=== PATIENT | female | born 1990 | race Asian ===

== ENCOUNTER 2018-01-23 22:14 | Inpatient (IN) | payer MEDICAID ==
[2018-01-23] MEDS ORDERED: Sodium Chloride 0.9% 2.5 ML Syringe FLUSH PRN (23:27)
[2018-01-23] MEDS ORDERED: Sodium Chloride 0.9% 10 ML Syringe FLUSH PRN (23:27)
[2018-01-23] MEDS ORDERED: Citric Acid/Sodium Citrate Solution 30 ML Cup PO SCH (23:30)
[2018-01-23] MEDS ORDERED: Lactated Ringers 1,000 ML IV SCH (23:30)
[2018-01-23] MEDS ORDERED: Oxytocin/0.9 % Sodium Chloride 30 UNIT/500 ML BAG IV SCH (23:30)
[2018-01-24] MEDS ORDERED: ZIDOVUDINE IV ONE (00:03)
[2018-01-24] MEDS ORDERED: SODIUM CHLORIDE 0.9% IV ONE (00:03)
[2018-01-24] MEDS ORDERED: SODIUM CHLORIDE 0.9% IV SCH ×2 (01:00→03:45)
[2018-01-24] MEDS ORDERED: ZIDOVUDINE IV SCH ×2 (01:00→03:45)
--- NOTE | 2018-01-24 03:37 | PCM.PREANE ---
Preanesthetic Assessment - Procedure Proposed Procedure: - Anesthesia/Transfusion/Family Hx Anesthesia History: Prior Anesthesia Without Reaction Family History of Anesthesia Reaction: No Transfusion History: No Prior Transfusion(s) Type of Transfusion Reactions: Reports: Unknown Intubation History: Unknown Additional History: HIV under treatment in [facility]; prior - Review of Systems General: No Symptoms Pulmonary: No Symptoms Cardiovascular: No Symptoms Gastrointestinal: No Symptoms, Other (some GERD w/ ) Neurological: Other (some labor pains) Other: Reports: None - Physical Assessment NPO Status Date: 01/23/18 NPO Status Time: 21:00 Height: 4 ft 9 in Weight: 127 lb ASA Class: 2E Mental Status: Alert & Oriented x3 Airway Class: Mallampati = 1 Dentition: Reports: Normal Dentition Thyro-Mental Finger Breadths: 3 Mouth Opening Finger Breadths: 3 ROM/Head Extension: Full Lungs: Clear to Auscultation, Normal Respiratory Effort Cardiovascular: Regular Rate, Regular Rhythm, No Murmurs - Lab Values: Laboratory Last Values WBC 11.10 K/uL (4.0-11.0) H 01/24/18 00:05 RBC 4.99 M/uL (4.30-5.90) 01/24/18 00:05 Hgb 10.5 g/dL (12.0-16.0) L 01/24/18 00:05 Hct 30.4 % (36.0-46.0) L 01/24/18 00:05 MCV 60.9 fL (80.0-98.0) L 01/24/18 00:05 MCH 21.0 pg (27.0-32.0) L 01/24/18 00:05 MCHC 34.5 g/dL (31.0-37.0) 01/24/18 00:05 RDW Std Deviation 33.7 fl (28.0-62.0) 01/24/18 00:05 RDW Coeff of Daren 16 % (11.0-15.0) H 01/24/18 00:05 Plt Count 269 K/uL (150-400) 01/24/18 00:05 MPV 10.30 fL (7.40-12.00) 01/24/18 00:05 Nucleated RBC % 0.4 /100WBC 01/24/18 00:05 Nucleated RBCs # 0 K/uL 01/24/18 00:05 Blood Type B POSITIVE 01/24/18 00:05 Antibody Screen NEGATIVE 01/24/18 00:05 Cold Antibody Screen POSITIVE 01/24/18 00:05 - Allergies Allergies/Adverse Reactions: Allergies Allergy/AdvReac Type Severity Reaction Status Date / Time No Known Allergies Allergy Verified 01/23/18 22:45 - Blood Blood Available: No Product(s) Available: PRBC (T and S) - Anesthesia Plan Pre-Op Medication Ordered: None - Acknowledgements Anesthesia Type Planned: Spinal Pt an Appropriate Candidate for the Planned Anesthesia: Yes Alternatives and Risks of Anesthesia Discussed w Pt/Guardian: Yes Pt/Guardian Understands and Agrees with Anesthesia Plan: Yes Additional Comments: mother to be in OR for delivery. PreAnesthesia Questionnaire HEENT History: Reports: None Cardiovascular History: Reports: None Respiratory History: Reports: None Gastrointestinal History: Reports: None Genitourinary History: Reports: None [employer] History: Reports: Musculoskeletal History: Reports: None Neurological History: Reports: None Psychiatric History: Reports: None Endocrine/Metabolic History: Reports: None Hematologic History: Reports: None Immunologic History: Reports: HIV Oncologic (Cancer) History: Reports: None Dermatologic History: Reports: None - Infectious Disease History Infectious Disease History: Reports: None - Past Surgical History Head Surgeries/Procedures: Reports: None HEENT Surgical History: Reports: None Cardiovascular Surgical History: Reports: None Respiratory Surgical History: Reports: None GI Surgical History: Reports: None Female Surgical History: Reports: None Endocrine Surgical History: Reports: None Neurological Surgical History: Reports: None Musculoskeletal Surgical History: Reports: None Oncologic Surgical History: Reports: None - SUBSTANCE USE Smoking Status *Q: Never Smoker Second Hand Smoke Exposure: No Days Per Week of Alcohol Use: 0 Recreational Drug Use History: No - HOME MEDS Home Medications: Home Meds Darunavir Ethanolate [Prezista] 800 mg PO DAILY 01/24/18 [History] Emtricitabine/Tenofovir [Truvada 200 mg-300 mg Tablet] 200 - 300 tab DAILY 01/24 [History] PNV #116/Iron Fumarate/FA/DHA [Expecta Combo Pack] 1 tab PO 01/24/18 [ History] Ritonavir [Norvir] 100 tab DAILY 01/24/18 [History] - CURRENT (IN HOUSE) MEDS Current Meds: Current Medications Citric Acid/Sodium Citrate (Bicitra Solution) 30 ml PO .ONCE JUAN C Oxytocin/Sodium Chloride (Oxytocin 30 Unit/500 Ml-Ns) 30 unit in 500 mls @ 250 mls/hr IV TITRATE JUAN C Lactated Ringer's (Ringers, Lactated) 1,000 mls @ 500 mls/hr IV .BOLUS [facility] Last Admin: 01/24/18 00:01 Dose: 500 mls/hr Zidovudine 58 mg/ Sodium (Chloride) 105.8 mls @ 35 mls/hr IV ASDIRECTED [facility] Last Admin: 01/24/18 01:39 Dose: 35 mls/hr Sodium Chloride (Saline Flush) 10 ml FLUSH ASDIRECTED PRN PRN Reason: Keep Vein Open Sodium Chloride (Saline Flush) 2.5 ml FLUSH ASDIRECTED PRN PRN Reason: Keep Vein Open Discontinued Medications Zidovudine 115 mg/ Sodium (Chloride) 61.5 mls @ 61.61 mls/hr IV ONETIME ONE Stop: 01/24/18 01:02 Last Admin: 01/24/18 00:46 Dose: 2 mg/kg/hr, 61.61 mls/hr
[2018-01-24] MEDS ORDERED: ceFAZolin 2 GM in Premix Bag 1 BAG IV ONE (04:46)
[2018-01-24] MEDS ORDERED: ePHEDrine 50 MG/ML SDV ONE (04:51)
[2018-01-24] MEDS ORDERED: Morphine PF 1 MG/ML Amp ONE (04:52)
[2018-01-24] MEDS ORDERED: Oxytocin/0.9 % Sodium Chloride 30 UNIT/500 ML BAG ONE (05:02)
[2018-01-24] MEDS ORDERED: Naloxone 0.4 MG/ML Syringe IVPUSH PRN (06:56)
[2018-01-24] MEDS ORDERED: Nalbuphine 10 MG/ML 10 ML MDV IVPUSH PRN (06:56)
[2018-01-24] MEDS ORDERED: Acetaminophen/oxyCODONE 325-5 MG Tab PO PRN ×3 (07:00→07:40)
--- NOTE | 2018-01-24 07:21 | PCM.POSTAN ---
POST ANESTHESIA ASSESSMENT - MENTAL STATUS Mental Status: Alert, Oriented - RESPIRATORY Respiratory Status: Respiratory Rate WNL, Airway Patent, O2 Saturation Stable - CARDIOVASCULAR CV Status: Pulse Rate WNL, Blood Pressure Stable - GASTROINTESTINAL GI Status: No Symptoms - PAIN Pain Score: 2 - POST OP HYDRATION Hydration Status: Adequate & Stable
[2018-01-24] MEDS ORDERED: diphenhydrAMINE 50 MG/ML SDV IVPUSH PRN (07:40)
[2018-01-24] MEDS ORDERED: Bisacodyl 10 MG Supp RECTAL PRN (07:40)
[2018-01-24] MEDS ORDERED: Ondansetron 4 MG/2 ML SDV IV PRN (07:40)
[2018-01-24] MEDS ORDERED: Lanolin 100% Cream 7 GM Tube TOP PRN (07:40)
[2018-01-24] MEDS ORDERED: Ibuprofen 800 MG Tab PO PRN (07:40)
[2018-01-24] MEDS ORDERED: Lactated Ringers 1,000 ML IV SCH (07:45)
--- NOTE | 2018-01-24 07:51 | PCM.OPNOTE ---
- General Post-Op/Procedure Note Date of Surgery/Procedure: 01/24/18 Operative Procedure(s): Repeat lower transverse Findings: Midline vertical incision from previous surgery with a scar , scar removed Live male delivered at 546am , wt : 2540g , 8/9 Minimal adhesion noted Peritoneum closed with 2.0 vicryl Fascia closed with 0 vicryl Skin closed with 3.0 monocryl on mike needle Pre Op Diagnosis: 27 yo @ 38w1d for repeat . HIV positive. Anemia Post-Op Diagnosis: same Anesthesia Technique: Epidural Primary Surgeon: Carlton Cruz Anesthesia Provider: Dutch Lyons Pathology: None Fluid Replacement, Intraop: 1,500 Output, Urine Amount: 200 EBL in mLs: 400 Complications: None Condition: Good Free Text/Narrative:: Intake & Output 01/23/18 01/24/18 01/24/18 22:59 06:59 14:59 Intake Total 1150 Output Total 200 Balance 950
[2018-01-24] MEDS: Ketorolac 30 MG/ML SDV IVPUSH SCH ×3 (08:17→20:28)
[2018-01-24] MEDS: Docusate Sodium 100 MG Cap PO SCH ×2 (10:11→20:28)
--- NOTE | 2018-01-24 18:49 | PCM48HPAN ---
Post Anesthesia Note - EVALUATION WITHIN 48HRS OF ANESTHETIC Vital Signs in Normal Range: Yes Patient Participated in Evaluation: Yes Respiratory Function Stable: Yes Airway Patent: Yes Cardiovascular Function Stable: Yes Hydration Status Stable: Yes Pain Control Satisfactory: Yes Nausea and Vomiting Control Satisfactory: Yes Mental Status Recovered: Yes Resp Rate: 15 - COMMENTS/OBSERVATIONS Free Text/Narrative:: Denies any complaints at this time.
[2018-01-25] MEDS: Ketorolac 30 MG/ML SDV IVPUSH SCH ×2 (02:16→09:12)
[2018-01-25] MEDS: Docusate Sodium 100 MG Cap PO SCH (09:12)
--- NOTE | 2018-01-25 10:35 | PCM.PNPP ---
- General Info Date of Service: 01/25/18 Admission Dx/Problem (Free Text): labor, prior , HIV status positive Subjective Update: Baby is being transferred to [place] due to bilateral pneumothoraces. Patient would like to be discharged so she can be with baby. Functional Status: Reports: Pain Controlled, Tolerating Diet, Ambulating, Urinating - Review of Systems General: Reports: No Symptoms HEENT: Reports: No Symptoms Pulmonary: Reports: No Symptoms Cardiovascular: Reports: No Symptoms Gastrointestinal: Reports: No Symptoms Genitourinary: Reports: No Symptoms Musculoskeletal: Reports: No Symptoms Skin: Reports: No Symptoms Neurological: Reports: No Symptoms Psychiatric: Reports: No Symptoms - Patient Data Vital Signs - Most Recent: Last Vital Signs Temp 36.6 C 01/25/18 04:00 Pulse 84 01/25/18 04:00 Resp 18 01/25/18 06:50 BP 122/70 01/25/18 04:00 Pulse Ox 97 01/25/18 06:50 Weight - Most Recent: 57.606 kg I&O - Last 24 Hours: Intake & Output 01/24/18 01/25/18 01/25/18 22:59 06:59 14:59 Intake Total 800 Output Total 700 1300 Balance -700 -500 Lab Results - Last 24 Hours: Laboratory Results - last 24 hr 01/25/18 Range/Units 05:57 Hgb 9.0 L (12.0-16.0) g/dL Hct 26.5 L (36.0-46.0) % Med Orders - Current: Current Medications Bisacodyl (Dulcolax) 10 mg RECTAL .ONCE PRN PRN Reason: Constipation Citric Acid/Sodium Citrate (Bicitra Solution) 30 ml PO .ONCE JUAN C Diphenhydramine HCl (Benadryl) 25 mg IVPUSH Q6H PRN PRN Reason: Itching or Nausea Docusate Sodium (Colace) 100 mg PO BID [facility] Last Admin: 01/25/18 09:12 Dose: 100 mg Emollient Ointment (Lansinoh Hpa) 0 gm TOP ASDIRECTED PRN PRN Reason: Sore Nipples Oxytocin/Sodium Chloride (Oxytocin 30 Unit/500 Ml-Ns) 30 unit in 500 mls @ 250 mls/hr IV TITRATE [facility] Lactated Ringer's (Ringers, Lactated) 1,000 mls @ 500 mls/hr IV .BOLUS JUAN C Last Admin: 01/24/18 00:01 Dose: 500 mls/hr Zidovudine 58 mg/ Sodium (Chloride) 105.8 mls @ 35 mls/hr IV ASDIRECTED JUAN C Last Admin: 01/24/18 01:39 Dose: 35 mls/hr Zidovudine 174 mg/ Sodium (Chloride) 117.4 mls @ 38.86 mls/hr IV ASDIRECTED JUAN C Last Admin: 01/24/18 03:47 Dose: 1 mg/kg/hr, 38.86 mls/hr Lactated Ringer's (Ringers, Lactated) 1,000 mls @ 125 mls/hr IV ASDIRECTED [facility] Ibuprofen (Motrin) 800 mg PO Q8H PRN PRN Reason: mild pain or fever Ondansetron HCl (Zofran) 4 mg IV Q4H PRN PRN Reason: Nausea/Vomiting Oxycodone/Acetaminophen (Percocet 325-5 Mg) 1 tab PO Q4H PRN PRN Reason: Abdominal Pain Oxycodone/Acetaminophen (Percocet 325-5 Mg) 1 tab PO Q4H PRN PRN Reason: Pain (moderate 4-6) Oxycodone/Acetaminophen (Percocet 325-5 Mg) 2 tab PO Q4H PRN PRN Reason: Pain (moderate 4-6) Sodium Chloride (Saline Flush) 10 ml FLUSH ASDIRECTED PRN PRN Reason: Keep Vein Open Sodium Chloride (Saline Flush) 2.5 ml FLUSH ASDIRECTED PRN PRN Reason: Keep Vein Open Discontinued Medications Ephedrine Sulfate (Ephedrine Sulfate) Confirm Administered Dose 50 mg .ROUTE .STK-MED ONE Stop: 01/24/18 04:52 Zidovudine 115 mg/ Sodium (Chloride) 61.5 mls @ 61.61 mls/hr IV ONETIME ONE Stop: 01/24/18 01:02 Last Admin: 01/24/18 00:46 Dose: 2 mg/kg/hr, 61.61 mls/hr Cefazolin Sodium/Dextrose 2 gm (/ Premix) 50 mls @ 100 mls/hr IV ONETIME ONE Stop: 01/24/18 05:15 Last Admin: 01/24/18 09:23 Dose: Not Given Cefazolin Sodium/Dextrose (Ancef) Confirm Administered Dose 50 mls @ as directed .ROUTE .STK-MED ONE Stop: 01/24/18 04:52 Oxytocin/Sodium Chloride (Oxytocin 30 Unit/500 Ml-Ns) Confirm Administered Dose 30 unit in 500 mls @ as directed .ROUTE .STK-MED ONE Stop: 01/24/18 05:03 Ibuprofen (Motrin) 800 mg PO Q8H PRN PRN Reason: mild pain or fever Ketorolac Tromethamine (Toradol) 30 mg IVPUSH Q6H JUAN C Stop: 01/25/18 07:46 Last Admin: 01/25/18 09:12 Dose: 30 mg Morphine Sulfate (Duramorph Pf) Confirm Administered Dose 1 mg .ROUTE .STK-MED ONE Stop: 01/24/18 04:53 Nalbuphine HCl (Nubain) 5 mg IVPUSH Q3H PRN PRN Reason: Pruritis Stop: 01/25/18 06:59 Naloxone HCl (Narcan) 0.1 mg IVPUSH ONETIME PRN PRN Reason: Respiratory Depression Stop: 01/25/18 06:58 - Infant Interaction Disposition, : [place] to Nursery Feeding: Bottle Fed Support Person: Other (see below) - Recovery Exam Fundal Tone: Firm Fundal Level: 1 Fingerbreadths Below Umbilicus Fundal Placement: Midline Lochia Amount: Scant Lochia Color: Rubra/Red Perineum Description: Intact, Minimal Bruising/Swelling Episiotomy/Laceration: None - Exam General: Alert, Oriented HEENT: Pupils Equal Lungs: Clear to Auscultation, Normal Respiratory Effort Cardiovascular: Regular Rate, Regular Rhythm GI/Abdominal Exam: Normal Bowel Sounds, Soft, Non-Tender, No Organomegaly, No Distention Extremities: Normal Inspection, Normal Range of Motion, Non-Tender, No Pedal Edema, Normal Capillary Refill Skin: Warm, Dry, Intact Wound/Incisions: Healing Well Neurological: No New Focal Deficit Psy/Mental Status: Alert, Normal Affect, Normal Mood - Problem List & Annotations (1) Previous delivery affecting , delivered SNOMED Code(s): 846442393 Code(s): O34.219 - MATERNAL CARE FOR UNSP TYPE SCAR FROM PREVIOUS DEL Status: Acute Current Visit: Yes (2) delivery due to maternal disorder SNOMED Code(s): 405937290 Code(s): ZHH2180 - Status: Acute Current Visit: Yes (3) Labor established SNOMED Code(s): 55498555 Code(s): SEU9477 - Status: Acute Current Visit: Yes (4) HIV infection complicating childbirth SNOMED Code(s): 583470582 Code(s): O98.72 - HUMAN IMMUNODEFICIENCY VIRUS DISEASE COMPLICATING CHILDBIRTH Status: Acute Current Visit: Yes - Problem List Review Problem List Initiated/Reviewed/Updated: Yes - Assessment Assessment:: POD#1 after repeat due to active labor, prior , vitals stable , hemoglobin appropriate, patient would like to be discharged due to baby being transferred with bilateral pneumothorax. She has adequate supply of antiretroviral medications and her infectious disease specialist is in [place]. - Plan Plan:: Dismiss to self care, will travel with baby, precautions reviewed, including lifting restrictions, and driving precautions. Continue antiretroviral regimen , follow up with ID in [place] and Dr. Faust in 2 and 6 weeks.
[2018-01-25] MEDS ORDERED: Ibuprofen 800 MG Tab PO PRN (14:00)
--- NOTE | 2018-01-27 08:53 | OR ---
SURGEON: ROMI JOHANSEN DATE OF PROCEDURE: 01/24/2018 PREOPERATIVE DIAGNOSES: A 27-year-old, G3, P1, 0-1-1 at 38 weeks and 1 day for repeat secondary to; 1. labour. 2. Human immunodeficiency virus positive. 3. Anemia. POSTOPERATIVE DIAGNOSIS: A 27-year-old, G3, P1, 0-1-1 at 38 weeks and 1 day for repeat secondary to; 1. labour. 2. Human immunodeficiency virus positive. 3. Anemia. PROCEDURE: Repeat lower transverse section. Revision of midline vertical scar ANESTHESIA: Spinal. IV FLUIDS: 1500. URINE OUTPUT: 200. ESTIMATED BLOOD LOSS: 400. FINDINGS: Midline vertical incision from previous surgery with scar, and the scar was removed. Live male delivered at 05:46 a.m. score 8 and 9. Weight is 2540 g. Minimal addition was noted. The peritoneum was closed with 2 - 0 Vicryl. Fascia was closed with 0 Vicryl. BRIEF HISTORY ABOUT PATIENT: The patient is a 27-year-old G3, P1, 0-1-1 who came into Labor and Delivery complaining of contractions. The patient was noted to have a regular contraction pattern and was 1 cm dilated from FT. She was then consented for repeat lower transverse section. The patient was explained the risks, benefits, and alternatives of repeat . She was allowed to ask questions and all questions were answered. DESCRIPTION OF PROCEDURE: The patient was taken to the operating room, where spinal anesthesia was performed without difficulty. A midline vertical incision was made below the umbilicus at the level of the previous incision and the previous scar was then removed. The incision was carried down to the fascia with the Bovie. The fascia was from the underlying rectus muscle in the midline and the peritoneum was entered with the aid of Metzenbaum scissors. Upon entry into the peritoneum, the peritoneum was extended upward and laterally to expose the bladder reflection, and then the Keon retractor was placed in the abdomen. The bladder flap was then created. The fetus was brought to the level of incision with fundal pressure and the infant was delivered without difficulty. Delayed cord clamping was observed. The cord was clamped and cut, and the was handed over to the awaiting washing machine installer. The cord blood gases were obtained, and the placenta was then delivered with manual massage of the uterine fundus. The uterine cavity was cleaned with moist laparotomy sponges. Then, the uterine incision was closed in one layer. The hemostasis was noted. The peritoneum was closed. The fascia was closed with 0 Vicryl and subcutaneous fat was closed with interrupted stitches. The skin was closed using 3-0 Monocryl on a Kirby needle. Steri-Strips was applied and bandage was applied. The patient was taken to the recovery room in stable condition. All pad and instrument count was correct x2. MAYRA LOPEZ /[id number]
== END 2018-01-25 15:31 | disposition home or self-care (01) | DRG 765 ==
LOC: MW.OBCHECK 22:14 → MW.OB 22:16 → MW.OBCHECK 23:27 → MW.OB 23:27
PROVIDERS: ADMIT Obstetrics & Gynecology; ATTEND Obstetrics & Gynecology
PROC: 10D00Z1 Extraction of Products of Conception, Low, Open Approach (ICD-10-PCS; principal; 2018-01-23)
DX: O60.14X0 Preterm labor third trimester with preterm delivery third trimester, not applicable or unspecified (principal); O98.72 Human immunodeficiency virus [HIV] disease complicating childbirth; O99.02 Anemia complicating childbirth; Z3A.38 38 weeks gestation of pregnancy; Z37.0 Single live birth
CPT/HCPCS: 36415; 85014; 85018; 85027; A9270-GY; J0690; J1885; J2274; J3485; J7030; J7050; J7120